=== PATIENT | male | born 1990 | race Caucasian/White ===

== ENCOUNTER 2021-03-02 19:04 | Emergency (ER) | payer BC, OTHER ==
[~2021-03-02] VITALS: Ht 180.3 cm; Wt 204.6 kg
[~2021-03-02 19:04] MED LIST: ALBUTEROL INH; LISI20TA28 PO; TYLENOL
[2021-03-02 19:28] VITALS: BP 111/68
[2021-03-02] MEDS ORDERED: ketorolac tromethamine 15mg/ml inj. IM ONE (22:30)
[2021-03-02] MEDS ORDERED: normal saline 1000ml 1,000 ML IV ONE (22:30)
[2021-03-02] MEDS ORDERED: orphenadrine citrate 60mg/2ml inj. IM ONE (22:45)
== END 2021-03-02 22:40 | disposition home or self-care (01) ==
LOC: ER 19:05
DX: S16.1XXA Strain of muscle, fascia and tendon at neck level, initial encounter (principal); Z79.899 Other long term (current) drug therapy; V87.7XXA Person injured in collision between other specified motor vehicles (traffic), initial encounter; Y93.89 Activity, other specified; Y92.89 Other specified places as the place of occurrence of the external cause; Y99.8 Other external cause status
CPT/HCPCS: 96372; 99284; J1885; J2360

== ENCOUNTER 2022-12-03 17:54 | Inpatient (IN) | payer BC, MEDICAID ==
[~2022-12-03] VITALS: Ht 180.3 cm; Wt 217.3 kg
[2022-12-03] MEDS ORDERED: iohexol 300mg/ml 100ml inj. ONE (21:26)
[2022-12-03 21:49] LABS: BASOPHILS # (AUTO) 0.1 X10'3 (0-0.2); BASOPHILS % (AUTO) 0.6 % (0-1); EOSINOPHILS # (AUTO) 0.3 X10'3 (0-0.9); EOSINOPHILS % (AUTO) 2.3 % (0-6); HEMATOCRIT 43.8 % (42.0-52.0); HEMOGLOBIN 14.3 g/dl (14.0-17.9); LYMPHOCYTES # (AUTO) 2.4 X10'3 (1.1-4.8); LYMPHOCYTES % (AUTO) 16.8 % (21-51); MEAN CORPUSCULAR HEMOGLOBIN 30.2 PG (27.0-31.0); MEAN CORPUSCULAR HGB CONC 32.7 g/dL (33.0-36.5); MEAN CORPUSCULAR VOLUME 92.4 FL (78-98); MEAN PLATELET VOLUME 8.1 FL (7.4-10.4); MONOCYTES # (AUTO) 0.9 X10'3 (0-0.9); MONOCYTES % (AUTO) 6.3 % (2-12); NEUTROPHILS # (AUTO) 10.6 X10'3 (1.8-7.7); PLATELET COUNT 259 X10'3 (140-440); RED BLOOD COUNT 4.75 X10'6 (4.70-6.10); RED CELL DISTRIBUTION WIDTH 15.8 % (11.5-14.5); WHITE BLOOD COUNT 14.3 X10'3 (4.5-11.0)
[2022-12-03 21:58] LABS: ALANINE AMINOTRANSFERASE 121 U/L (12-78); ALBUMIN 3.3 G/DL (3.4-5.0); ALBUMIN/GLOBULIN RATIO 0.7 (1.1-1.5); ALKALINE PHOSPHATASE 106 IU/L (46-116); ANION GAP 7 (8-16); ASPARTATE AMINO TRANSFERASE 52 U/L (10-37); BILIRUBIN,TOTAL 0.6 MG/DL (0.1-1.0); BLOOD UREA NITROGEN 12 MG/DL (7-18); BUN/CREATININE RATIO 16.7 (5.4-32.0); CALCIUM 9.6 MG/DL (8.5-10.1); CHLORIDE 100 MMOL/L (99-107); CREATININE 0.72 MG/DL (0.60-1.10); GLUCOSE 151 MG/DL (70-104); POTASSIUM 3.7 MMOL/L (3.5-5.1); SODIUM 138 MMOL/L (135-145); TOTAL CARBON DIOXIDE 31.3 MMOL/L (24-32); TOTAL PROTEIN 8.3 G/DL (6.4-8.2); eGFR > 90 ML/MIN
--- NOTE | 2022-12-03 22:13 | NUR ---
Patient to CT.
[2022-12-03] MEDS ORDERED: vancomycin inj 2,000 MG in normal saline 500ml IV soln 500 ML IV ONE (23:00)
[2022-12-04] VITALS (25 sets, daily range): BP systolic 107–164; BP diastolic 53–102
[2022-12-04] MEDS: vancomycin/NS 1 GM ADD-VANTAGE 250 ML IV SCH ×4 (00:12→21:25)
--- NOTE | 2022-12-04 00:24 | NUR ---
PT MOVED TO MAIN ER ROOM 15. PT PLACED ONTO AN INPATIENT BED
[2022-12-04] MEDS ORDERED: DEXTROSE 15 GM of carb/4 tabs (each vial/BOTTLE has 4 tablets) PO PRN ×2 (01:05)
[2022-12-04] MEDS ORDERED: MESSAGE TO PHARMACY PO ONE (01:05)
[2022-12-04] MEDS ORDERED: mag hydrox/Alum hydrox/simeth 30ml oral suspension PO PRN (01:05)
[2022-12-04] MEDS ORDERED: ondansetron/PF 4mg/2ml inj IV PRN ×2 (01:05→14:55)
[2022-12-04] MEDS ORDERED: HYDROcodone/acetaminophen 5mg/325mg tablet PO PRN (01:05)
[2022-12-04] MEDS ORDERED: insulin Lispro (HumaLOG) vial - multi-dose SQ SCH (01:05)
[2022-12-04] MEDS ORDERED: acetaminophen 325mg tablet PO PRN ×2 (01:05)
[2022-12-04] MEDS ORDERED: magnesium 4gm in 100ml NS 100 ML IV PRN (01:05)
[2022-12-04] MEDS ORDERED: magnesium hydroxide 30ml (MOM) UD suspension PO PRN (01:05)
[2022-12-04] MEDS ORDERED: dextrose 50%-water 50ml dispensing syringe IV PRN ×2 (01:05)
[2022-12-04] MEDS ORDERED: HYDROcodone/acetaminophen 10/325mg tab PO PRN (01:05)
[2022-12-04] MEDS ORDERED: potassium Cl 40MEQ/1/2NS 520ml 520 ML IV PRN (01:05)
[2022-12-04] MEDS ORDERED: potassium Cl 20 mEq SR tablet PO PRN ×2 (01:05)
[2022-12-04] MEDS ORDERED: glucagon, human recombinant 1mg kit SUBCUT PRN (01:05)
[2022-12-04] MEDS ORDERED: EMPA25TA PO (01:34)
[2022-12-04] MEDS ORDERED: METF-900 PO (01:34)
[2022-12-04] MEDS ORDERED: LANTUS SQ (01:34)
[2022-12-04] MEDS ORDERED: NAPR-56 PO (01:34)
[2022-12-04] MEDS ORDERED: ZAR5T PO (01:34)
[2022-12-04] MEDS ORDERED: GABA-530 PO (01:34)
[2022-12-04] MEDS ORDERED: METO50TA7 PO (01:34)
[2022-12-04] MEDS ORDERED: LOSA50TA3 PO (01:34)
[2022-12-04] MEDS ORDERED: PANT40TA54 PO (01:34)
[2022-12-04] MEDS ORDERED: LEVO50CA4 PO (01:34)
[2022-12-04] MEDS ORDERED: POTA20PA40 PO (01:34)
[2022-12-04] MEDS ORDERED: ATOR20TA PO (01:34)
[2022-12-04] MEDS ORDERED: ALBU8HFA PO (01:34)
[2022-12-04] MEDS ORDERED: DULO-31 PO (01:34)
--- NOTE | 2022-12-04 02:33 | NUR ---
REPORT CALLLED TO FLOOR NURSE. PT TX TO ROOM 352
[2022-12-04] MEDS: piperacillin/tazo 4.5gm/100ml 100 ML IV SCH ×3 (04:10→19:32)
--- NOTE | 2022-12-04 06:48 | NUR ---
Patient in room [facility] 352. I have received report from Irma/Bea and had the opportunity to ask questions and assume patient care.
[2022-12-04] MEDS: K and/or MAG REPLACEMENT MC SCH ×2 (07:45→20:00)
[2022-12-04] MEDS ORDERED: vancomycin/NS 1 GM ADD-VANTAGE 250 ML IV SCH (10:00)
[2022-12-04] MEDS: docusate sod 100mg capsule PO SCH ×2 (10:09→20:00)
[2022-12-04] MEDS: losartan 50mg tablet PO SCH (10:09)
[2022-12-04] MEDS: levoTHYROXINE 25mcg tablet PO SCH (10:09)
[2022-12-04] MEDS: duloxetine 30mg CAPSULE.DR PO SCH (10:10)
[2022-12-04] MEDS: atorvastatin 20mg tablet PO SCH (10:10)
[2022-12-04] MEDS: gabapentin 300mg capsule PO SCH ×2 (10:10→21:25)
[2022-12-04] MEDS: pantoprazole 40mg Tablet.DR PO SCH (10:10)
[2022-12-04] MEDS: metoprolol succinate 25mg (24-HOUR) SR. Tablet PO SCH (10:11)
[2022-12-04] MEDS: EMPAGLIFLOZIN 25 MG TABLET PO SCH (11:06)
[2022-12-04] MEDS: metolazone 2.5mg tablet PO SCH (11:06)
--- NOTE | 2022-12-04 12:59 | NUR ---
DM Consult: Pt hx IDDM A1C 11.0% admit DX neck abscess pending OR today for I&D per EMR. Pt/mother seen by RD for written/verbal DM diet ed w/ RD contact information provided. Pt reports has glucometer at home though ran out of test strips-CM notified. Pt reports takes DM meds per Rx: metformin, Jardiance, sliding scale insulin w/ meals, and basal coverage insulin. RD encouraged pt/mother to contact dietitian's office if further nutrition questions/concerns. Pt requests double proteins TIDWM once diet advances post-op; dietary notified. Addendum: 12/04/22 at [address] Amended: Links added.
[2022-12-04] MEDS ORDERED: FURO40TA4 PO (13:47)
[2022-12-04] MEDS ORDERED: OMEG-5 PO (13:50)
[2022-12-04] MEDS ORDERED: CHOL20002 PO (13:50)
[2022-12-04] MEDS ORDERED: glucose test strips (14:41)
[2022-12-04] MEDS ORDERED: BUPIVAcaine/PF 2.5 mg/ml (0.25%) 30ml vial ONE (14:41)
[2022-12-04] MEDS ORDERED: bacitracin 15gm ointment TP ONE (14:48)
[2022-12-04] MEDS ORDERED: proCHLORperazine 10 MG/2 ml inj IV PRN (14:55)
[2022-12-04] MEDS ORDERED: morphine 4 MG/ML inj SYRINge IV PRN (14:55)
[2022-12-04] MEDS ORDERED: HYDROmorphone/PF 0.2 MG/ML SYRINGE IV PRN ×2 (14:55)
[2022-12-04] MEDS ORDERED: labetalol 20mg/4ml (5mg/ml) syringe IV PRN (14:55)
[2022-12-04] MEDS ORDERED: morphine 2 MG/ML inj. syringe IV PRN (14:55)
[2022-12-04] MEDS ORDERED: ringers solution, lacted 1,000 ML IV SCH (14:55)
[2022-12-04] MEDS ORDERED: meperidine/PF 25mg/ml syringe IV PRN (14:55)
[2022-12-04] MEDS ORDERED: hydrALAZINE 20mg/ml inj. IV PRN (14:55)
[2022-12-04] MEDS ORDERED: acetaminophen 1,000mg/100ml IV 100 ML IV PRN (14:55)
--- NOTE | 2022-12-04 15:06 | NUR ---
Problems reprioritized. Patient report given to Zafar in recovery.
[2022-12-04] MEDS ORDERED: sevoflurane 250ml liquid IH ONE (15:31)
[2022-12-04] MEDS ORDERED: fentaNYL/PF 50MCG/1 ML 2ML syringe ONE (15:44)
[2022-12-04] MEDS ORDERED: midazolam 1 mg/ML 2ml injection ONE (16:19)
[2022-12-04] MEDS ORDERED: rocuronium 10mg/ml inj IV ONE (16:43)
[2022-12-04] MEDS ORDERED: succinylcholine 20mg/ml inj IV ONE (16:43)
[2022-12-04] MEDS ORDERED: LIDOcaine 2% (20mg/ml) 5ml vial ONE (16:43)
[2022-12-04] MEDS ORDERED: ondansetron/PF 4mg/2ml inj ONE (16:43)
[2022-12-04] MEDS ORDERED: propofol inj 20 ML IV ONE ×2 (16:43)
[2022-12-04] MEDS ORDERED: dexamethasone sod phosphate 4mg/ml inj. ONE (16:44)
--- NOTE | 2022-12-04 17:05 | NUR ---
Received from OR via BED, accompanied by Anesthesiologist DR BROWN and report given by Anesthesiologist AND WHARF ATTENDANT. PT VERY COMBATIVE, CONFUSED, ATTEMPTING TO GET OOB. SEVERAL NURSING STAFF TO KEEP PT FROM GETTING OOB. PTS MOTHER IN TO ASSIST W/HELP, PT IMPROVED AFTER HIS MOTHER CAME IN ROOM. POSTERIOR NECK OPEN W/GAUZE DRSG PACKED IN AND SOME OUT OF INCISION. PTS CONTINUOUSLY SWEATING PROFUSELY TAPE WILL NOT STICK, PT CAME OUT OF OR AND MD IS AWARE. AFTER 30 MINUTES PT A/O X 4, RESTING. Addendum: 12/04/22 at 1956 by Antonia Vega RN Amended: Links added.
--- NOTE | 2022-12-04 18:14 | NUR ---
Problems reprioritized. Patient report given, questions answered & plan of care reviewed with
--- NOTE | 2022-12-04 19:15 | NUR ---
PT UP TO BATHROOM FOR VOID, STEADY ON FEET. REMAINS DIAPHORETIC. BACK TO BED. REINFORCED DRSG TO BACK OF NECK. PT STATES HE HAS SOME PAIN BUT DECLINES PAIN MEDICATION AT THIS TIME. REPORT CALLED TO RECEIVING RN, PT TRANSFERRED VIA BED ON TO ROOM 352A. RECEIVING RN AT BEDSIDE TO RECEIVE PT. PTS MOTHER REMAINS W/PT AT BEDSIDE. Addendum: 12/04/22 at 8 by Antonia Vega RN Amended: Links added.
[2022-12-04] MEDS ORDERED: insulin glargine (Lantus) pen - multi-dose SQ SCH (21:00)
[2022-12-04] MEDS: enoxaparin 40mg/0.4ml syringe SQ SCH (21:26)
[2022-12-04] MEDS: insulin glargine (Lantus) pen - multi-dose SQ SCH (22:12)
--- NOTE | 2022-12-04 23:56 | NUR ---
Student Medication Administration: For this medication-pass time frame, all medication were reviewed, dispensed, administered and documented per hospital policy by Roseline Lutz. [facility].
[2022-12-05] MEDS: piperacillin/tazo 4.5gm/100ml 100 ML IV SCH ×3 (01:54→21:01)
[2022-12-05 02:00] VITALS: BP 141/78
[2022-12-05] MEDS ORDERED: VANCOMYCIN LEVEL IV ONE (03:30)
[2022-12-05] MEDS: vancomycin/NS 1 GM ADD-VANTAGE 250 ML IV SCH ×3 (05:34→16:51)
[2022-12-05 06:10] LABS: BASOPHILS % (AUTO) 0.3 % (0-1); EOSINOPHILS % (AUTO) 0 % (0-6); HEMOGLOBIN 14.6 g/dl (14.0-17.9); LYMPHOCYTES % (AUTO) 11.2 % (21-51); MEAN CORPUSCULAR HGB CONC 32.4 g/dL (33.0-36.5); MEAN CORPUSCULAR VOLUME 95.6 FL (78-98); MEAN PLATELET VOLUME 8.1 FL (7.4-10.4); MONOCYTES # (AUTO) 0.8 X10'3 (0-0.9); MONOCYTES % (AUTO) 4.7 % (2-12); NEUTROPHILS # (AUTO) 15.1 X10'3 (1.8-7.7); NEUTROPHILS % (AUTO) 83.8 % (42-75); PLATELET COUNT 316 X10'3 (140-440); RED BLOOD COUNT 4.71 X10'6 (4.70-6.10); RED CELL DISTRIBUTION WIDTH 16.6 % (11.5-14.5)
[2022-12-05 06:14] LABS: ALANINE AMINOTRANSFERASE 103 U/L (12-78); ALBUMIN 3.2 G/DL (3.4-5.0); ALBUMIN/GLOBULIN RATIO 0.6 (1.1-1.5); ALKALINE PHOSPHATASE 108 IU/L (46-116); ANION GAP 14 (8-16); ASPARTATE AMINO TRANSFERASE 54 U/L (10-37); BILIRUBIN,TOTAL 0.8 MG/DL (0.1-1.0); BLOOD UREA NITROGEN 20 MG/DL (7-18); BUN/CREATININE RATIO 21.1 (5.4-32.0); CALCIUM 8.9 MG/DL (8.5-10.1); CHLORIDE 99 MMOL/L (99-107); CREATININE 0.95 MG/DL (0.60-1.10); GLUCOSE 157 MG/DL (70-104); MAGNESIUM 2.4 MG/DL (1.5-2.4); POTASSIUM 4.5 MMOL/L (3.5-5.1); SODIUM 138 MMOL/L (135-145); TOTAL CARBON DIOXIDE 24.7 MMOL/L (24-32); TOTAL PROTEIN 8.6 G/DL (6.4-8.2); VANCOMYCIN,TROUGH 4.5 UG/ML (6.0-14.0); eGFR > 90 ML/MIN
--- NOTE | 2022-12-05 06:31 | NUR ---
Patient in room [facility] 352. I have received report from Irma/Bea and had the opportunity to ask questions and assume patient care.
[2022-12-05 06:49] VITALS: BP 133/64
[2022-12-05] MEDS: levoTHYROXINE 25mcg tablet PO SCH (07:52)
[2022-12-05] MEDS: docusate sod 100mg capsule PO SCH ×2 (07:52→20:00)
[2022-12-05] MEDS: losartan 50mg tablet PO SCH (07:55)
[2022-12-05] MEDS: atorvastatin 20mg tablet PO SCH (07:56)
[2022-12-05] MEDS: EMPAGLIFLOZIN 25 MG TABLET PO SCH (07:56)
[2022-12-05] MEDS: gabapentin 300mg capsule PO SCH ×2 (07:56→21:00)
[2022-12-05] MEDS: duloxetine 30mg CAPSULE.DR PO SCH (07:56)
[2022-12-05] MEDS: pantoprazole 40mg Tablet.DR PO SCH (07:56)
[2022-12-05] MEDS: metoprolol succinate 25mg (24-HOUR) SR. Tablet PO SCH (07:56)
[2022-12-05] MEDS: metolazone 2.5mg tablet PO SCH (07:57)
[2022-12-05] MEDS: K and/or MAG REPLACEMENT MC SCH ×2 (08:00→20:00)
[2022-12-05 10:00] VITALS: BP 104/51
--- NOTE | 2022-12-05 12:03 | NUR ---
Dr Garcia stated pt is to have dressing changes to neck are to be done w/ gauze soaked w/ Dakins 1/4 strength QD. He also stated concern that pt will need QD wound care and if pt's mom/family can't do it then pt will need rehab other care arrangements. VEOT Shultz notified.
--- NOTE | 2022-12-05 12:51 | NUR ---
Mom, Roberta, stated she realizes she will need to learn how to do the drsg changes for the patient. She also expressed desire to bring the pt to the [facility] for drsgs but is now aware they are not available on weekends or holidays.
--- NOTE | 2022-12-05 16:40 | NUR ---
Student documentation:[facility] student Nela I have reviewed and agree with all interventions, assessments performed and medication administration per hospital policy and documented by Natan
[2022-12-05] MEDS: Dakins solution (1/4 strength) 473ml solution TP SCH (16:52)
--- NOTE | 2022-12-05 17:56 | NUR ---
Dressing change done, photo taken at 17:10. Upon removing dressing, gauze was very much adhered to the wound. NS was used to saturate and remove old gauze packing. Some minimal/moderate blood loss was experienced. Kerlix/gauze roll was saturated in the Dakin's solution and firmly packed in the wound bed. Dry 4x4 sponges were placed over the top of the wound and secured with the x-large tegaderm. Patient tolerated this well.
[2022-12-05 18:00] VITALS: BP 98/52
--- NOTE | 2022-12-05 18:35 | NUR ---
Problems reprioritized. Patient report given, questions answered & plan of care reviewed with Sherine
[2022-12-05] MEDS: enoxaparin 40mg/0.4ml syringe SQ SCH (21:01)
[2022-12-05] MEDS: insulin glargine (Lantus) pen - multi-dose SQ SCH (21:08)
[2022-12-05 22:00] VITALS: BP 95/57
[2022-12-06] MEDS: vancomycin/NS 1 GM ADD-VANTAGE 250 ML IV SCH (01:43)
[2022-12-06] MEDS ORDERED: VANCOMYCIN LEVEL IV ONE (04:30)
[2022-12-06] MEDS: piperacillin/tazo 4.5gm/100ml 100 ML IV SCH ×2 (04:53→11:25)
[2022-12-06 06:43] LABS: BASOPHILS # (AUTO) 0.1 X10'3 (0-0.2); BASOPHILS % (AUTO) 0.4 % (0-1); EOSINOPHILS # (AUTO) 0.2 X10'3 (0-0.9); EOSINOPHILS % (AUTO) 1.2 % (0-6); HEMATOCRIT 42.9 % (42.0-52.0); HEMOGLOBIN 14.2 g/dl (14.0-17.9); LYMPHOCYTES # (AUTO) 2.5 X10'3 (1.1-4.8); LYMPHOCYTES % (AUTO) 19.7 % (21-51); MEAN CORPUSCULAR HEMOGLOBIN 31.1 PG (27.0-31.0); MEAN CORPUSCULAR VOLUME 94.2 FL (78-98); MEAN PLATELET VOLUME 7.7 FL (7.4-10.4); NEUTROPHILS # (AUTO) 8.8 X10'3 (1.8-7.7); NEUTROPHILS % (AUTO) 70.7 % (42-75); PLATELET COUNT 298 X10'3 (140-440); RED BLOOD COUNT 4.56 X10'6 (4.70-6.10); RED CELL DISTRIBUTION WIDTH 15.5 % (11.5-14.5); WHITE BLOOD COUNT 12.5 X10'3 (4.5-11.0)
[2022-12-06 07:06] LABS: ALANINE AMINOTRANSFERASE 114 U/L (12-78); ALBUMIN 2.9 G/DL (3.4-5.0); ALBUMIN/GLOBULIN RATIO 0.6 (1.1-1.5); ALKALINE PHOSPHATASE 111 IU/L (46-116); ANION GAP 8 (8-16); ASPARTATE AMINO TRANSFERASE 97 U/L (10-37); BILIRUBIN,TOTAL 0.6 MG/DL (0.1-1.0); BLOOD UREA NITROGEN 23 MG/DL (7-18); BUN/CREATININE RATIO 26.7 (5.4-32.0); CALCIUM 8.8 MG/DL (8.5-10.1); CHLORIDE 98 MMOL/L (99-107); CREATININE 0.86 MG/DL (0.60-1.10); GLUCOSE 130 MG/DL (70-104); POTASSIUM 3.4 MMOL/L (3.5-5.1); SODIUM 138 MMOL/L (135-145); TOTAL CARBON DIOXIDE 32.3 MMOL/L (24-32); TOTAL PROTEIN 7.9 G/DL (6.4-8.2); eGFR > 90 ML/MIN
[2022-12-06 07:14] LABS: MAGNESIUM 2.1 MG/DL (1.5-2.4); VANCOMYCIN,TROUGH 10.9 UG/ML (6.0-14.0)
[2022-12-06] MEDS: levoTHYROXINE 25mcg tablet PO SCH (08:00)
[2022-12-06] MEDS ORDERED: VANCOmycin 1250MG/NS 250ml Bag 250 ML IV SCH (08:00)
[2022-12-06] MEDS: K and/or MAG REPLACEMENT MC SCH (08:00)
[2022-12-06] MEDS: Dakins solution (1/4 strength) 473ml solution TP SCH (08:00)
[2022-12-06] MEDS: docusate sod 100mg capsule PO SCH (08:50)
[2022-12-06] MEDS: losartan 50mg tablet PO SCH (08:51)
[2022-12-06] MEDS: EMPAGLIFLOZIN 25 MG TABLET PO SCH (08:52)
[2022-12-06] MEDS: duloxetine 30mg CAPSULE.DR PO SCH (08:52)
[2022-12-06] MEDS: pantoprazole 40mg Tablet.DR PO SCH (08:53)
[2022-12-06] MEDS: gabapentin 300mg capsule PO SCH (08:53)
[2022-12-06] MEDS: atorvastatin 20mg tablet PO SCH (08:53)
[2022-12-06] MEDS: metoprolol succinate 25mg (24-HOUR) SR. Tablet PO SCH (08:54)
[2022-12-06] MEDS: metolazone 2.5mg tablet PO SCH (08:55)
[2022-12-06 10:00] VITALS: BP 126/69
[2022-12-06 10:11] VITALS: BP 104/63
[2022-12-06] MEDS ORDERED: SODI473S20 TP (11:29)
[2022-12-06] MEDS ORDERED: AMOX-117 PO (11:29)
--- NOTE | 2022-12-06 14:07 | NUR ---
PRESSURE ULCER EDUCATION: DEFINITION: A pressure ulcer is an area of skin that breaks down when you stay in one position too long. The constant pressure against the skin reduces the blood flow to that area and the affected tissue dies. CAUSES: "Being bedridden or in a wheelchair "Fragile skin "Having a chronic condition, such as diabetes or vascular disease "Inability to move certain parts of your body without assistance "Older age "Incontinence of urine or stool SYMPTOMS: "A reddened area that DOES NOT turn white when pressed on - this can be the beginning of a pressure ulcer "A blister, deep sore or a crater - these can be advanced pressure ulcers FIRST AID: "Relieve the pressure on this area "Keep the area clean and dry "Call your primary doctor if you see any of the above symptoms "DO NOT massage the area "DO NOT use a donut shaped or ring shaped pillow- these actually interfere with the blood flow and cause complications PREVENTION: "Check for pressure ulcers everyday "Change position at least every two hours to relieve pressure "Use items that help relieve pressure- pillows, sheepskin, foam padding, and powders. "Keep skin clean and dry "Eat healthy well balanced meals "Exercise daily IF YOU SEE ANY OF THESE SYMPTOMS WHILE IN THE HOSPITAL - TELL YOUR NURSE IMMEDIATELY. IF YOU SEE ANY OF THESE SYMPTOMS WHILE AT HOME OR HAVE ANY QUESTIONS OR CONCERNS ABOUT PRESSURE ULCERS - CALL YOUR PRIMARY DOCTOR IMMEDIATELY. Addendum: 12/06/22 at 1408 by Aarti Camilo RN Amended: Links added.
--- NOTE | 2022-12-06 14:53 | NUR ---
pt discharged in stable condition to home with mom. ivs removed tips intact no complications. belongings sent with pt. pt educated on discharged follow up. wound care supplies provided
[2022-12-07] MEDS ORDERED: VANCOMYCIN LEVEL IV ONE (01:30)
== END 2022-12-06 14:44 | disposition home health service (06) | DRG 383 ==
LOC: ER 17:55 → ED HOLD 12-04 01:09 → SUR 3N 12-04 02:45
PROVIDERS: ADMIT Family Medicine; ATTEND Family Medicine
PROC: 0JB50ZZ Excision of Left Neck Subcutaneous Tissue and Fascia, Open Approach (ICD-10-PCS; principal; 2022-12-04 15:31)
DX: L02.11 Cutaneous abscess of neck (principal); L02.212 Cutaneous abscess of back [any part, except buttock and flank]; Z20.822 Contact with and (suspected) exposure to COVID-19; E11.9 Type 2 diabetes mellitus without complications; E66.01 Morbid (severe) obesity due to excess calories; Z79.4 Long term (current) use of insulin; Z80.0 Family history of malignant neoplasm of digestive organs; Z82.49 Family history of ischemic heart disease and other diseases of the circulatory system; Z83.3 Family history of diabetes mellitus; Z68.44 Body mass index [BMI] 60.0-69.9, adult
CPT/HCPCS: 36415; 70491; 80053; 80202; 82948; 83036; 83605; 83735; 84145; 84443; 85025; 87040; 87081; 87811; 94760; 99285; A4215; A4615; A4618; A6223; A6253; A6258; A6446; A6449; A7000; G0378; J0131; J0330; J1100; J1650; J1815; J2250; J2405; J2543; J2704; J3010; J3370; J3490; J7040; J7120; Q9967

== ENCOUNTER 2023-01-07 09:16 | Inpatient (IN) | payer MEDICAID ==
[~2023-01-07] VITALS: Ht 180.3 cm; Wt 213.6 kg
[~2023-01-07 09:16] MED LIST changes: +ALBU8HFA PO; -ALBUTEROL INH; +ATOR20TA PO; +CHOL20002 PO; +DULO-31 PO; +EMPA25TA PO; +FURO40TA4 PO; +GABA-530 PO; +LANTUS SQ; +LEVO50CA4 PO; -LISI20TA28 PO; +LOSA50TA3 PO; +METF-900 PO; +METO50TA7 PO; +OMEG-5 PO; +PANT40TA54 PO; +POTA20PA40 PO; +SODI473S20 TP; -TYLENOL; +ZAR5T PO; +glucose test strips
[2023-01-07 09:42] LABS: BASOPHILS # (AUTO) 0.1 X10'3 (0-0.2); BASOPHILS % (AUTO) 0.6 % (0-1); EOSINOPHILS # (AUTO) 0.2 X10'3 (0-0.9); EOSINOPHILS % (AUTO) 1.6 % (0-6); HEMATOCRIT 47.2 % (42.0-52.0); HEMOGLOBIN 16.2 g/dl (14.0-17.9); MEAN CORPUSCULAR HEMOGLOBIN 31.1 PG (27.0-31.0); MEAN CORPUSCULAR HGB CONC 34.3 g/dL (33.0-36.5); MEAN CORPUSCULAR VOLUME 90.7 FL (78-98); MONOCYTES # (AUTO) 1.1 X10'3 (0-0.9); MONOCYTES % (AUTO) 11.5 % (2-12); NEUTROPHILS # (AUTO) 6.3 X10'3 (1.8-7.7); NEUTROPHILS % (AUTO) 65.3 % (42-75); PLATELET COUNT 265 X10'3 (140-440); RED CELL DISTRIBUTION WIDTH 16.1 % (11.5-14.5); WHITE BLOOD COUNT 9.6 X10'3 (4.5-11.0)
[2023-01-07 09:46] LABS: ALANINE AMINOTRANSFERASE 94 U/L (12-78); ALBUMIN 3.4 G/DL (3.4-5.0); ALBUMIN/GLOBULIN RATIO 0.7 (1.1-1.5); ALKALINE PHOSPHATASE 77 IU/L (46-116); ANION GAP 7 (8-16); ASPARTATE AMINO TRANSFERASE 68 U/L (10-37); BILIRUBIN,TOTAL 0.6 MG/DL (0.1-1.0); BLOOD UREA NITROGEN 21 MG/DL (7-18); BUN/CREATININE RATIO 21.2 (10.0-20.0); CALCIUM 9.3 MG/DL (8.5-10.1); CHLORIDE 90 MMOL/L (99-107); CREATININE 0.99 MG/DL (0.60-1.10); GLUCOSE 228 MG/DL (70-104); POTASSIUM 3.1 MMOL/L (3.5-5.1); SODIUM 132 MMOL/L (135-145); TOTAL CARBON DIOXIDE 35.5 MMOL/L (24-32); TOTAL PROTEIN 8.4 G/DL (6.4-8.2); eGFR 87 ML/MIN
[2023-01-07 09:53] LABS: MAGNESIUM 1.9 MG/DL (1.5-2.4)
[2023-01-07] MEDS ORDERED: CefTRIAXone/D5W-Rocephin 1gm 50 ML IV ONE (09:55)
[2023-01-07] MEDS ORDERED: azithromycin/NS 500mg/250ml 250 ML IV ONE (09:55)
[2023-01-07 10:42] LABS: D-DIMER 0.26 MG/L FEU (0-0.50)
[2023-01-07] MEDS ORDERED: potassium Cl 40MEQ/1/2NS 520ml 520 ML IV PRN (13:40)
[2023-01-07] MEDS ORDERED: acetaminophen 325mg tablet PO PRN (13:40)
[2023-01-07] MEDS ORDERED: HYDROcodone/acetaminophen 5mg/325mg tablet PO PRN (13:40)
[2023-01-07] MEDS ORDERED: magnesium 2GM in 50ml NS 50 ML IV PRN (13:40)
[2023-01-07] MEDS ORDERED: magnesium Cl slow-release 64mg tablet PO PRN (13:40)
[2023-01-07] MEDS ORDERED: ondansetron/PF 4mg/2ml inj IV PRN (13:40)
[2023-01-07] MEDS ORDERED: magnesium 4gm in 100ml NS 100 ML IV PRN (13:40)
[2023-01-07 14:47] LABS: CLARITY,URINE CLEAR (Clear); COLOR,URINE YELLOW (Yellow); GLUCOSE, URINE >=1000 mg/dl (Neg); KETONES,URINE NEGATIVE (Neg); LEUKOCYTE ESTERASE ,URINE NEGATIVE (Neg); NITRITES, URINE NEGATIVE (Neg); OCCULT BLOOD,URINE NEGATIVE (Neg); PROTEIN,URINE 100 mg/dl (Neg); UROBILINOGEN,URINE 0.2 E.U/dL (0.2-1.0)
[2023-01-07 14:54] LABS: UA COLLECTION TYPE CLN CATCH MIDSTREAM
[2023-01-07 14:55] LABS: BACTERIA,URINE FEW /HPF (Neg); RBC,URINE NONE SEEN /HPF (0-2); WBC,URINE 0-4 /HPF (0-4)
[2023-01-07 14:56] LABS: SQUAMOUS EPITHELIAL CELL,UR FEW /LPF (FEW)
[2023-01-07] MEDS ORDERED: INSU100I45 SQ (16:23)
--- NOTE | 2023-01-07 16:46 | NUR ---
REPEAT EKG, FREQUENT PVC'S
[2023-01-07] MEDS: potassium Cl 20 mEq SR tablet PO PRN ×2 (17:04→22:27)
[2023-01-07] MEDS: potassium Cl 20 mEq SR tablet PO SCH (17:25)
[2023-01-07] MEDS ORDERED: albuterol 2.5 MG/3 ML nebule NEB PRN (17:25)
[2023-01-07] MEDS ORDERED: insulin Lispro (HumaLOG) vial - multi-dose SQ SCH (18:00)
[2023-01-07] MEDS: atorvastatin 20mg tablet PO SCH (18:12)
[2023-01-07] MEDS: losartan 50mg tablet PO SCH (18:12)
[2023-01-07] MEDS: pantoprazole 40mg Tablet.DR PO SCH (18:12)
[2023-01-07] MEDS: K and/or MAG REPLACEMENT MC SCH (20:00)
[2023-01-07] MEDS: heparin, porcine 5000 units/ml vial SQ SCH (20:49)
[2023-01-07] MEDS: gabapentin 100mg capsule PO SCH (20:50)
[2023-01-07] MEDS: insulin glargine (Lantus) pen - multi-dose SQ SCH (22:17)
[2023-01-07] MEDS: OMEGA-3/DHA/EPA/FISH OIL 1 EACH CAPSULE.DR PO SCH (22:26)
[2023-01-08 03:46] LABS: BASOPHILS # (AUTO) 0.1 X10'3 (0-0.2); BASOPHILS % (AUTO) 0.6 % (0-1); EOSINOPHILS # (AUTO) 0.2 X10'3 (0-0.9); EOSINOPHILS % (AUTO) 1.6 % (0-6); HEMATOCRIT 46.6 % (42.0-52.0); HEMOGLOBIN 15.3 g/dl (14.0-17.9); LYMPHOCYTES # (AUTO) 2.3 X10'3 (1.1-4.8); LYMPHOCYTES % (AUTO) 23.2 % (21-51); MEAN CORPUSCULAR HEMOGLOBIN 30.3 PG (27.0-31.0); MEAN CORPUSCULAR HGB CONC 32.9 g/dL (33.0-36.5); MEAN CORPUSCULAR VOLUME 91.9 FL (78-98); MEAN PLATELET VOLUME 8.1 FL (7.4-10.4); MONOCYTES # (AUTO) 1.2 X10'3 (0-0.9); MONOCYTES % (AUTO) 11.6 % (2-12); NEUTROPHILS # (AUTO) 6.2 X10'3 (1.8-7.7); PLATELET COUNT 254 X10'3 (140-440); RED BLOOD COUNT 5.07 X10'6 (4.70-6.10); RED CELL DISTRIBUTION WIDTH 16.2 % (11.5-14.5); WHITE BLOOD COUNT 9.9 X10'3 (4.5-11.0)
[2023-01-08 03:57] LABS: ALBUMIN 3.2 G/DL (3.4-5.0); ANION GAP 7 (8-16); BLOOD UREA NITROGEN 34 MG/DL (7-18); BUN/CREATININE RATIO 20.6 (10.0-20.0); CALCIUM 9.2 MG/DL (8.5-10.1); CHLORIDE 90 MMOL/L (99-107); CREATININE 1.65 MG/DL (0.60-1.10); GLUCOSE 233 MG/DL (70-104); MAGNESIUM 2.3 MG/DL (1.5-2.4); POTASSIUM 3.1 MMOL/L (3.5-5.1); SODIUM 133 MMOL/L (135-145); TOTAL CARBON DIOXIDE 36.4 MMOL/L (24-32); eGFR 48 ML/MIN
--- NOTE | 2023-01-08 05:04 | NUR ---
PT. HAS BEEN SLEEPING INTERMITTENLY, STATES UNABLE TO LAY DOWN BECAUSE HIS OXYGEN SATURATIONS DROP, UNABLE TO WEAR CPAP MACHINE BECAUSE HE HAS ASPIRATED IN THE PAST. SLEEPS IN SHORT INTERVALS, STATES HE DOESN'T GET MUCH SLEEP WHEN HE IS HOME.
[2023-01-08] MEDS: K and/or MAG REPLACEMENT MC SCH ×2 (08:00→20:00)
[2023-01-08] MEDS ORDERED: metolazone 2.5mg tablet PO SCH (08:00)
--- NOTE | 2023-01-08 08:00 | NUR ---
Received report from TANK PUMPERVETO Shultz. Assumed care of patient on Ortho Neuro floor. All belongings transferred with patient. Vital signs stable.
[2023-01-08 08:30] VITALS: BP 116/54
[2023-01-08] MEDS: losartan 50mg tablet PO SCH (09:09)
[2023-01-08] MEDS: duloxetine 30mg CAPSULE.DR PO SCH (09:10)
[2023-01-08] MEDS: potassium Cl 20 mEq SR tablet PO SCH (09:11)
[2023-01-08] MEDS: atorvastatin 20mg tablet PO SCH (09:13)
[2023-01-08] MEDS: OMEGA-3/DHA/EPA/FISH OIL 1 EACH CAPSULE.DR PO SCH ×2 (09:13→20:18)
[2023-01-08] MEDS: gabapentin 100mg capsule PO SCH ×2 (09:15→20:18)
[2023-01-08] MEDS: pantoprazole 40mg Tablet.DR PO SCH (09:15)
[2023-01-08] MEDS: levoTHYROXINE 25mcg tablet PO SCH (09:15)
--- NOTE | 2023-01-08 09:15 | NUR ---
Noted Pt hx DM A1C 11.0% 12/03/22 w/ education provided 12/04/22 per EMR. Addendum: 01/08/23 at [address] Amended: Links added.
[2023-01-08] MEDS: heparin, porcine 5000 units/ml vial SQ SCH ×2 (09:16→20:19)
[2023-01-08] MEDS: metoprolol succinate 25mg (24-HOUR) SR. Tablet PO SCH (09:16)
[2023-01-08 10:00] VITALS: BP 103/54
[2023-01-08] MEDS: insulin Lispro (HumaLOG) vial - multi-dose SQ SCH ×3 (10:24→20:05)
--- NOTE | 2023-01-08 10:40 | NUR ---
Wound consult: Pt w/ no physical assessment, WOC assessment, WOC consult, or any mentions of wounds in physicians/RN notes. Unsure of consult accuracy w/ no skin breakdown in EMR at this time. Addendum: 01/08/23 at [address] Amended: Links added.
--- NOTE | 2023-01-08 13:12 | NUR ---
PAGER ID: [phone] MESSAGE: Trina Ferguson [id number] Medical records from [facility] are now in the patients chart. Thank you, My [phone]
--- NOTE | 2023-01-08 14:46 | NUR ---
PAGER ID: [phone] MESSAGE: Trina Ferguson [id number] Positive blood cultures- Gram positive cocci in clusters. Thank you, My [phone]
[2023-01-08 18:00] VITALS: BP 99/48
--- NOTE | 2023-01-08 19:08 | NUR ---
Patient in room ORTHO 4020. I have received report from VETO Negron and had the opportunity to ask questions and assume patient care. Addendum: 01/08/23 at 1909 by My Lakhani LVN, LVN Patient report given
--- NOTE | 2023-01-08 19:42 | NUR ---
Patient in room ORTHO 4020. I have received report from maximo reeves and had the opportunity to ask questions and assume patient care.
[2023-01-08] MEDS ORDERED: PERFLUTREN PROTEIN-A MICROSPHR (Optison) 0.22 MG/ML 3ML VIAL IV ONE (21:45)
[2023-01-08 22:00] VITALS: BP 106/66
[2023-01-08] MEDS: insulin glargine (Lantus) pen - multi-dose SQ SCH (22:43)
[2023-01-09 02:00] VITALS: BP 125/71
--- NOTE | 2023-01-09 06:28 | NUR ---
Problems reprioritized. Patient report given, questions answered & plan of care reviewed with kerri toledo. Addendum: 01/09/23 at 0628 by Migdalia Darden RN Problems reprioritized. Patient report given, questions answered & plan of care reviewed with je toledo.
[2023-01-09 07:00] VITALS: BP 140/75
[2023-01-09 07:22] LABS: BASOPHILS # (AUTO) 0.1 X10'3 (0-0.2); BASOPHILS % (AUTO) 0.6 % (0-1); EOSINOPHILS # (AUTO) 0.2 X10'3 (0-0.9); EOSINOPHILS % (AUTO) 2.8 % (0-6); HEMATOCRIT 44.5 % (42.0-52.0); HEMOGLOBIN 14.9 g/dl (14.0-17.9); LYMPHOCYTES % (AUTO) 34.1 % (21-51); MEAN CORPUSCULAR HEMOGLOBIN 30.5 PG (27.0-31.0); MEAN CORPUSCULAR HGB CONC 33.5 g/dL (33.0-36.5); MEAN CORPUSCULAR VOLUME 91.2 FL (78-98); MEAN PLATELET VOLUME 7.8 FL (7.4-10.4); MONOCYTES # (AUTO) 0.7 X10'3 (0-0.9); MONOCYTES % (AUTO) 8.6 % (2-12); NEUTROPHILS # (AUTO) 4.7 X10'3 (1.8-7.7); NEUTROPHILS % (AUTO) 53.9 % (42-75); PLATELET COUNT 255 X10'3 (140-440); RED BLOOD COUNT 4.88 X10'6 (4.70-6.10); RED CELL DISTRIBUTION WIDTH 16.3 % (11.5-14.5); WHITE BLOOD COUNT 8.6 X10'3 (4.5-11.0)
[2023-01-09 07:33] LABS: ALBUMIN 3.1 G/DL (3.4-5.0); ANION GAP 7 (8-16); BLOOD UREA NITROGEN 40 MG/DL (7-18); BUN/CREATININE RATIO 41.2 (10.0-20.0); CALCIUM 9.2 MG/DL (8.5-10.1); CHLORIDE 93 MMOL/L (99-107); CREATININE 0.97 MG/DL (0.60-1.10); GLUCOSE 193 MG/DL (70-104); MAGNESIUM 2.4 MG/DL (1.5-2.4); SODIUM 135 MMOL/L (135-145); TOTAL CARBON DIOXIDE 35.2 MMOL/L (24-32); eGFR 89 ML/MIN
[2023-01-09 07:36] LABS: POTASSIUM 2.8 MMOL/L (3.5-5.1)
--- NOTE | 2023-01-09 07:51 | NUR ---
PAGER ID: [phone] MESSAGE: Marty Collins0, Pt has a critical low lab value K - 2.8 Derek [id number]
[2023-01-09] MEDS: potassium Cl 20 mEq SR tablet PO SCH (07:57)
[2023-01-09] MEDS: heparin, porcine 5000 units/ml vial SQ SCH (07:59)
[2023-01-09] MEDS: losartan 50mg tablet PO SCH (08:00)
[2023-01-09] MEDS: OMEGA-3/DHA/EPA/FISH OIL 1 EACH CAPSULE.DR PO SCH (08:00)
[2023-01-09] MEDS: K and/or MAG REPLACEMENT MC SCH (08:00)
[2023-01-09] MEDS: duloxetine 30mg CAPSULE.DR PO SCH (08:00)
[2023-01-09] MEDS: levoTHYROXINE 25mcg tablet PO SCH (08:01)
[2023-01-09] MEDS: atorvastatin 20mg tablet PO SCH (08:01)
[2023-01-09] MEDS: pantoprazole 40mg Tablet.DR PO SCH (08:01)
[2023-01-09] MEDS: gabapentin 100mg capsule PO SCH (08:01)
[2023-01-09] MEDS: metoprolol succinate 25mg (24-HOUR) SR. Tablet PO SCH (08:01)
[2023-01-09] MEDS: potassium Cl 20 mEq SR tablet PO PRN ×2 (08:07→12:20)
[2023-01-09] MEDS: insulin Lispro (HumaLOG) vial - multi-dose SQ SCH (08:17)
[2023-01-09 11:30] VITALS: BP 120/64
--- NOTE | 2023-01-09 11:51 | NUR ---
Patient in room ORTHO 4020. I have received report from Migdalia and had the opportunity to ask questions and assume patient care.
[2023-01-09] MEDS ORDERED: AMOX-117 PO (12:19)
--- NOTE | 2023-01-09 14:07 | NUR ---
O2 Sat at rest on room air:_92__% If below 89%: Recovery O2 Sat at rest on ___LPM:___%:___% via (mask/nasal cannula, etc..) No further documentation is necessary. If O2 Sat did not drop below 89% on room air,ambulate patient on room air. O2 Sat while ambulating on room air:_90__% Recovery O2 Sat while ambulating on __0_LPM:___% No further documentation is necessary. If patient does not drop below 89% while ambulating, he/she does not qualify for home O2.
--- NOTE | 2023-01-09 14:57 | NUR ---
Pt discharged home aprox 1420. Discharge paperwork gone over with pt, all questions answered. Pt left with all belongings. Pt left in stable condition.
== END 2023-01-09 14:20 | disposition home health service (06) | DRG 133 ==
LOC: ER 09:16 → ED HOLD 13:53 → ORTHO 4S 01-08 07:15
PROVIDERS: ADMIT Internal Medicine; ATTEND Internal Medicine
DX: J96.21 Acute and chronic respiratory failure with hypoxia (principal); N17.0 Acute kidney failure with tubular necrosis; I50.43 Acute on chronic combined systolic (congestive) and diastolic (congestive) heart failure; I27.20 Pulmonary hypertension, unspecified; Z68.44 Body mass index [BMI] 60.0-69.9, adult; I11.0 Hypertensive heart disease with heart failure; Z20.822 Contact with and (suspected) exposure to COVID-19; B33.24 Viral cardiomyopathy; E03.9 Hypothyroidism, unspecified; E11.9 Type 2 diabetes mellitus without complications; F32.A Depression, unspecified; E66.01 Morbid (severe) obesity due to excess calories; E78.5 Hyperlipidemia, unspecified; E87.6 Hypokalemia; K21.9 Gastro-esophageal reflux disease without esophagitis; G47.33 Obstructive sleep apnea (adult) (pediatric); J45.909 Unspecified asthma, uncomplicated; K76.0 Fatty (change of) liver, not elsewhere classified; Z79.4 Long term (current) use of insulin; Z79.84 Long term (current) use of oral hypoglycemic drugs; Z79.899 Other long term (current) drug therapy; Z80.0 Family history of malignant neoplasm of digestive organs; Z82.49 Family history of ischemic heart disease and other diseases of the circulatory system; Z83.3 Family history of diabetes mellitus; Z87.01 Personal history of pneumonia (recurrent)
CPT/HCPCS: 36415; 71045; 80048; 80053; 81001; 82948; 83605; 83735; 83880; 84145; 84484; 85025; 85379; 87040; 87081; 87186; 87502; 87503; 87635; 87811; 93308; 99285; A4615; C9803; G0378; J0456; J0696; J1644; J1815

== ENCOUNTER 2024-01-07 14:02 | Emergency (ER) | payer MEDICAID ==
[~2024-01-07] VITALS: Ht 180.3 cm; Wt 226.2 kg
[~2024-01-07 14:02] MED LIST changes: +INSU100I61 SQ; +LOSA-416 PO; -LOSA50TA3 PO; -SODI473S20 TP; -glucose test strips
[2024-01-07 14:24] VITALS: TEMP 98.2; O2SAT 94
[2024-01-07 15:09] LABS: BASOPHILS % (AUTO) 0.4 % (0-1); EOSINOPHILS # (AUTO) 0.2 X10'3 (0-0.9); EOSINOPHILS % (AUTO) 1.6 % (0-6); HEMATOCRIT 45.4 % (42.0-52.0); LYMPHOCYTES # (AUTO) 2.9 X10'3 (1.1-4.8); LYMPHOCYTES % (AUTO) 26.9 % (21-51); MEAN CORPUSCULAR HEMOGLOBIN 29.5 PG (27.0-31.0); MEAN CORPUSCULAR VOLUME 89.6 FL (78-98); MEAN PLATELET VOLUME 8.1 FL (7.4-10.4); MONOCYTES # (AUTO) 0.6 X10'3 (0-0.9); MONOCYTES % (AUTO) 5.2 % (2-12); NEUTROPHILS # (AUTO) 7.1 X10'3 (1.8-7.7); NEUTROPHILS % (AUTO) 65.9 % (42-75); PLATELET COUNT 243 X10'3 (140-440); RED BLOOD COUNT 5.07 X10'6 (4.70-6.10); RED CELL DISTRIBUTION WIDTH 15.4 % (11.5-14.5); WHITE BLOOD COUNT 10.8 X10'3 (4.5-11.0)
[2024-01-07 15:27] LABS: ALBUMIN 2.9 G/DL (3.4-5.0); ANION GAP 8 (8-16); BLOOD UREA NITROGEN 17 MG/DL (7-18); BUN/CREATININE RATIO 17.2 (10.0-20.0); CALCIUM 8.7 MG/DL (8.5-10.1); CHLORIDE 98 MMOL/L (99-107); CREATININE 0.99 MG/DL (0.60-1.10); GLUCOSE 293 MG/DL (70-104); POTASSIUM 3.2 MMOL/L (3.5-5.1); PRO BRAIN NATRIURETIC PEPTIDE 219 PG/ML (0-125); SODIUM 135 MMOL/L (135-145); TOTAL CARBON DIOXIDE 29.3 MMOL/L (24-32); eCRCL 112 ML/MIN; eGFR 87 ML/MIN
[2024-01-07] MEDS: normal saline 1000ml 1,000 ML IV ONE (15:59)
[2024-01-07] MEDS: potassium Cl 20 mEq SR tablet PO ONE (16:12)
[2024-01-07 16:45] VITALS: BP 151/100
[2024-01-07 16:59] VITALS: PULSE 95; RESP 22
== END 2024-01-07 17:01 | disposition home or self-care (01) ==
LOC: ER 14:04
DX: R42 Dizziness and giddiness (principal); E87.6 Hypokalemia; E86.0 Dehydration; I50.9 Heart failure, unspecified; Z88.1 Allergy status to other antibiotic agents; Z79.899 Other long term (current) drug therapy; Z79.84 Long term (current) use of oral hypoglycemic drugs
CPT/HCPCS: 36415; 71045; 80048; 83880; 84484; 85025; 93005; 96360; 99285; J7030